=== PATIENT | female | born 1980 | race Caucasian/White ===

== ENCOUNTER 2018-05-03 11:30 | Emergency (ER) | payer MEDICAID ==
[~2018-05-03] VITALS: Ht 154.9 cm; Wt 72.6 kg
[2018-05-03 11:34] VITALS: Ht 154.9 cm; Wt 72.6 kg
[2018-05-03 12:51] LABS: BASOPHIL % 0.4 % (0-2); PLATELET COUNT 259 x10^3mcL (130-400); RED CELL DISTRIBUTION WIDTH 13.6 % (11.5-14.5)
[2018-05-03 13:25] VITALS: BP 120/76
== END 2018-05-03 13:52 | disposition home or self-care (01) ==
LOC: ED 11:30 → EDBD 11:30 → ED 13:52
PROVIDERS: Emergency Medicine
DX: N93.8 Other specified abnormal uterine and vaginal bleeding (principal)
CPT/HCPCS: 36415